=== PATIENT | female | born 1960 | race Two or more races ===

== ENCOUNTER 2016-10-21 16:07 | Emergency (ER) | payer MEDICAID ==
[2016-10-21 17:14] VITALS: BP 115/62
[2016-10-21] MEDS ORDERED: KETOROLAC TROMETH 60MG/2ML VIAL IM ONE (17:30)
[2016-10-21] MEDS ORDERED: traMADol HCL 50 MG TAB PO ONE (17:30)
== END 2016-10-21 18:05 | disposition home or self-care (01) ==
LOC: ER 16:12
DX: M79.641 Pain in right hand (principal); Z98.890 Other specified postprocedural states
CPT/HCPCS: 96372; 99283; J1885

== ENCOUNTER 2018-11-15 14:26 | Emergency (ER) | payer MEDICAID ==
[~2018-11-15] VITALS: Ht 162.6 cm; Wt 79.4 kg
[2018-11-15 15:32] LABS: Alanine Aminotransferase 33 U/L (13-56); Albumin 3.9 g/dL (3.4-5.0); Anion Gap 6 (5-15); Aspartate Aminotransferase 13 U/L (15-37); BUN/Creatinine Ratio 14.6; Blood Urea Nitrogen 12 mg/dL (7-18); Calcium 9.1 mg/dL (8.5-10.1); Carbon Dioxide 27 mmol/L (21-32); Chloride 109 mmol/L (98-107); GFR African American 93 mL/min; GFR Non-African American 77 mL/min; Glucose 108 mg/dL (74-106); Magnesium 2.2 mg/dL (1.6-2.6); Potassium 3.8 mmol/L (3.5-5.1); Sodium 142 mmol/L (136-145)
[2018-11-15 15:37] LABS: Alkaline Phosphatase 79 U/L (45-117); Bilirubin, Total 0.2 mg/dL (0.2-1.0); Total Protein 7.6 g/dL (6.4-8.2)
[2018-11-15 15:53] LABS: Basophils # (auto) 0 uL; Basophils % (auto) 0.4 % (0.0-2.0); Eosinophils # (auto) 0.1 uL; Eosinophils % (auto) 1.4 % (0.0-7.0); Hematocrit 39.7 % (36.0-46.0); Hemoglobin 13.5 g/dL (12.2-16.2); Lymphocytes # (auto) 3.5 uL; Lymphocytes % (auto) 51.4 % (10.0-50.0); Mean Corpuscular Hemoglobin 29.8 pg (28.0-32.0); Mean Corpuscular Volume 87.8 fL (80.0-100.0); Monocytes # (auto) 0.5 uL; Monocytes % (auto) 6.7 % (0.0-12.0); Neutrophils # (auto) 2.7 uL; Neutrophils % (auto) 40.1 % (37.0-80.0); Nucleated Red Blood Cells % 0.1 %; Platelet Count (auto) 169 10^3/uL (140-450); Red Blood Cells 4.53 10^6/uL (4.0-5.20); Red Cell Distribution Width 13.7 % (11.8-14.3); White Blood Cell 6.7 10^3/uL (4.4-10.8)
[2018-11-15 16:23] LABS: Urine Bacteria NONE SEEN /hpf (None Seen); Urine Blood Negative /uL (Negative); Urine Mucus FEW (None Seen); Urine Specific Gravity 1.026 (1.001-1.035); Urine WBC 4 /hpf (0 - 5)
[2018-11-15 17:35] VITALS: BP 142/85
== END 2018-11-15 17:43 | disposition home or self-care (01) ==
LOC: ER 14:26
DX: R07.89 Other chest pain (principal); N39.0 Urinary tract infection, site not specified
CPT/HCPCS: 36415; 74176; 80053; 81001; 83735; 84484; 85025; 93005

== ENCOUNTER 2020-02-12 13:47 | Emergency (ER) | payer BC, MEDICAID ==
[~2020-02-12] VITALS: Ht 162.6 cm; Wt 68.0 kg
[2020-02-12] MEDS ORDERED: KETOROLAC TROMETH 60MG/2ML VIAL IM ONE (17:00)
[2020-02-12 17:11] VITALS: BP 148/74
== END 2020-02-12 17:16 | disposition home or self-care (01) ==
LOC: ER 13:47
DX: L03.011 Cellulitis of right finger (principal)
CPT/HCPCS: 73140; 99283; J1885

== ENCOUNTER 2021-11-01 13:11 | Emergency (ER) | payer OTHER, MEDICAID ==
[~2021-11-01] VITALS: Ht 162.6 cm; Wt 68.0 kg
[2021-11-01 13:35] VITALS: BP 124/73
[2021-11-01] MEDS ORDERED: PRED20TA2 PO (14:21)
[2021-11-01] MEDS ORDERED: IBUP800T27 PO (14:21)
== END 2021-11-01 14:45 | disposition home or self-care (01) ==
LOC: ER 13:11
DX: G56.02 Carpal tunnel syndrome, left upper limb (principal)
CPT/HCPCS: 29125

== ENCOUNTER 2022-02-07 10:36 | Emergency (ER) | payer OTHER, MEDICAID ==
[~2022-02-07] VITALS: Ht 162.6 cm; Wt 70.4 kg
[~2022-02-07 10:36] MED LIST: IBUP800T27 PO; PRED20TA2 PO
[2022-02-07 11:29] VITALS: BP 117/59
[2022-02-07] MEDS ORDERED: KETOROLAC TROMETH 60MG/2ML VIAL IM ONE (11:30)
[2022-02-07] MEDS ORDERED: IBUP800T27 PO (11:47)
[2022-02-07] MEDS ORDERED: METH750T22 PO (11:47)
== END 2022-02-07 11:59 | disposition home or self-care (01) ==
LOC: ER 10:36
DX: S16.1XXA Strain of muscle, fascia and tendon at neck level, initial encounter (principal); M77.9 Enthesopathy, unspecified; Z79.1 Long term (current) use of non-steroidal anti-inflammatories (NSAID); Z79.899 Other long term (current) drug therapy; X58.XXXA Exposure to other specified factors, initial encounter; Y93.89 Activity, other specified; Y92.89 Other specified places as the place of occurrence of the external cause; Y99.8 Other external cause status
CPT/HCPCS: 72040; 96372; 99283; J1885

== ENCOUNTER 2023-02-06 17:22 | Emergency (ER) | payer OTHER, MEDICAID ==
[~2023-02-06] VITALS: Ht 160 cm; Wt 66.4 kg
[~2023-02-06 17:22] MED LIST changes: +IBUP-1456 PO; -IBUP800T27 PO; +METH-1182 PO; +NEOM0.1O7 OP
[2023-02-06 18:52] VITALS: BP 146/74; PULSE 114; RESP 16; TEMP 98.2; O2SAT 96
[2023-02-06] MEDS ORDERED: IBUPROFEN 800 MG TAB PO ONE (19:15)
[2023-02-06] MEDS ORDERED: IBUP-1456 PO (20:26)
[2023-02-06] MEDS ORDERED: ONDANSETRON ODT 4 MG TAB PO ONE (20:45)
== END 2023-02-06 20:48 | disposition home or self-care (01) ==
LOC: ER 17:22
DX: S16.1XXA Strain of muscle, fascia and tendon at neck level, initial encounter (principal); S39.012A Strain of muscle, fascia and tendon of lower back, initial encounter; V43.62XA Car passenger injured in collision with other type car in traffic accident, initial encounter; Y93.89 Activity, other specified; Y92.488 Other paved roadways as the place of occurrence of the external cause; Y99.8 Other external cause status
CPT/HCPCS: 72040; 72100; 99284; Q0162